=== PATIENT | female | born 2005 | race Caucasian/White ===

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

== ENCOUNTER 2024-03-20 17:12 | Emergency (ER) | payer OTHER, SELFPAY ==
[2024-03-20 17:13] VITALS: BP 150/68; PULSE 85; RESP 16; TEMP 36.4; O2SAT 100; BMI 23.8
--- NOTE | 2024-03-20 17:26 | RAD_ITS ---
INDICATION: trauma EXAMINATION/TECHNIQUE: X-RAY - XR Pelvis 1 View COMPARISON: FINDINGS: PELVIC BONES: No displaced fracture, destructive or sclerotic lesions. Note that overlapping bowel shadows may however obscure fine detail. Sacroiliac joints are unremarkable. No widening of the pubic symphysis. HIPS: The articular structures are unremarkable. No displaced fracture seen in this frontal view. SOFT TISSUES: No soft tissue swelling or gas. RAD/Pelvis 1 or 2 Views IMPRESSION: No evidence of displaced pelvic or hip fracture. Electronically Signed: Thomas Simmons DO at 18:21 EDT Reading Location ID and State: [facility] / [place] Tel [phone], Service support ,
--- NOTE | 2024-03-20 17:27 | EX.ED.GENINJ ---
HPI History of Present Illness Chief Complaint: Back Informant: patient Narrative Narrative: 18-year-old female presenting to the emergency room with acute low back pain. Patient states that she was at work today about 1 hour prior to examination when she fell going down a flight of stairs. She states she went down on her low back and when she got to the bottom landed on her tailbone. She notes pain in the low back that radiates upwards and bruising/abrasions. She notes pain in the midline buttock region. She denies any arm or leg symptoms. She denies hitting her head. [facility] Medical History MRSA (methicillin resistant Staphylococcus aureus) Home Medications ?Medication ?Instructions ?Recorded ?Last Taken ?Type dicyclomine 20 mg tablet 20 mg PO TID PRN abdominal 08/19/23 Unknown Rx cramping #10 tabs ondansetron 4 mg disintegrating 4 mg PO Q8H PRN PRN Nausea #10 tabs 08/19/23 Unknown Rx tablet Allergy/AdvReac Type Severity Reaction Status Date / Time No Known Allergies Allergy Verified 12/31/22 09:30 Family History Other Cancer Diabetes Heart disease Social History Smoking Status: Never smoker alcohol intake: never ROS ROS ED Constitutional Constitutional ED: Denies chills or weight loss Eyes Eyes: Denies change in vision or diplopia ENT ENT ED: Denies ear pain, rhinorrhea or sore throat Cardiovascular Cardiovascular: Denies chest pain, orthopnea, palpitations or racing heartbeat Respiratory/Chest Respiratory/Chest: Denies cough, dyspnea or orthopnea Gastrointestinal Gastrointestinal: Denies abdominal pain, diarrhea, nausea or vomiting Genitourinary Genitourinary ED: Denies dysuria, hematuria or urinary frequency Musculoskeletal Musculoskeletal: Reports back pain; Denies arthralgias or myalgias Integumentary Denies abscess or rash Neurologic Neurologic: Denies headache(s) or weakness Psychiatric Psychiatric: Denies anxiety, depression, suicidal ideation or suicidal thoughts Endocrine Endocrinology: Denies polydipsia, polyphagia or polyuria Allergic/Immunologic Allergic/Immunologic ED: Denies mouth swelling, tongue swelling or urticaria EXAM Physical Exam Const Vital Signs: 03/20/24 17:13 03/20/24 18:46 Temperature 97.6 F L 97.6 F L Temperature Source Temporal Pulse Rate 85 85 Respiratory Rate 16 16 Blood Pressure 150/68 H 150/68 H Blood Pressure Mean 95 95 Pulse Ox 100 100 Oxygen Delivery Method Room Air Positive well nourished and well developed General Appearance ED: well developed and NAD HEENT Reports normocephalic, head/scalp atraumatic and moist mucous membranes Eyes PERRL and EOMs intact bilaterally Neck no lymphadenopathy, supple and no JVD Resp normal respiratory effort and clear to auscultation bilaterally Cardio regular rate, regular rhythm and no murmurs GI normal to inspection, nondistended, normoactive bowel sounds and non-tender Palpation: soft Back/Spine no CVA tenderness and normal ROM Back/Spine Narrative: Patient moves reasonably well in the bed. She has abrasion and contusion noted in the midline of the lumbar spine. Mild swelling. She has mild tenderness along the sacrum and inferiorly on the lower coccyx. No buttock pain. Extremity normal to inspection General Extremety ED: Negative for edema General Extremity: Negative for edema Neuro oriented x3 and CN's II-XII intact bilaterally Pasquale Coma Scale: document GCS findings Spontaneous Obeys Commands Oriented 15 Sensorium / Orientation: alert Motor Exam: strength 5/5 throughout Psych mental status grossly normal Mood & Affect: Negative for depressed or tearful Skin no rashes or lesions noted and no wounds MDM MDM MDM Narrative Medical decision making narrative: Differential diagnosis includes continued fracture sprain strain retroperitoneal hematoma solid organ injury My independent interpretation plain films of the pelvis is no acute fracture. My independent interpretation of the plain films of the lumbar spine is no acute fracture. Patient received a dose of Motrin. We discussed follow-up. We discussed missed fractures and the need for repeat imaging if back pain is continuing. At this point patient will be treated conservatively. Follow-up at our clinic return if worsening or concerns History & Record Review Discussion w/independent historian: Patient Radiography Diagnostic Testing: Clinical Impression(s) from Imaging Studies Pelvis X-Ray 03/20/24 17:26 IMPRESSION: No evidence of displaced pelvic or hip fracture. Electronically Signed: Thomas Simmons DO at 18:21 EDT , Lumbar Spine X-Ray 03/20/24 17:40 IMPRESSION: Normal x-ray examination of the lumbar spine. Electronically Signed: Thomas Simmons DO at 18:19 EDT , Discharge Plan Triage Chief Complaint: Back ED Provider: James Vo Dx/Rx/DC Orders Clinical Impression: Fall, Acute lumbar myofascial strain, Abrasion of back, Contusion of sacrococcygeal region Instructions: ED Abrasion, ED Back Sprain/Strain, ED Coccyx or Sacrum Contusion Prescriptions: No Action ondansetron [ondansetron] 4 mg tablet,disintegrating 4 mg PO Q8H PRN PRN (Reason: Nausea) Qty: 10 0RF dicyclomine 20 mg tablet 20 mg PO TID PRN (Reason: abdominal cramping) Qty: 10 0RF Primary Care Provider: Chelo Griffin Referrals: Chelo Griffin MD [Primary Care Provider] - [facility] [Non-Staff] - As soon as possible Print Language: Greek Disposition Disposition: Home, Self Care Discharge Date/Time: 03/20/24 18:53
[2024-03-20] MEDS: Ibuprofen 600 MG Tablet PO (17:32)
--- NOTE | 2024-03-20 17:40 | RAD_ITS ---
STUDY: X-RAY - LUMBAR SPINE REASON FOR EXAM: Female, 18 years old. Trauma TECHNIQUE: 3 view(s) of the lumbar spine were obtained. COMPARISON: None FINDINGS: Normal lumbar lordosis. There is no substantial scoliosis. There is a normal alignment of the vertebrae. Normal vertebral bodies and endplates. Normal disc space heights. The soft tissue structures are unremarkable. RAD/Lumbar Spine 2 or 3 Views IMPRESSION: Normal x-ray examination of the lumbar spine. Electronically Signed: Thomas Simmons DO at 18:19 EDT ,
[2024-03-20 18:46] VITALS: BP 150/68; PULSE 85; RESP 16; TEMP 36.4; O2SAT 100
== END 2024-03-20 18:53 | disposition home or self-care (01) ==
PROVIDERS: Emergency Provider Emergency Medicine; PCP Pediatrics; Visit Provider Emergency Medicine
DX: S39.012A Strain of muscle, fascia and tendon of lower back, initial encounter (principal); S20.229A Contusion of unspecified back wall of thorax, initial encounter; S30.810A Abrasion of lower back and pelvis, initial encounter; Z86.14 Personal history of Methicillin resistant Staphylococcus aureus infection; W10.9XXA Fall (on) (from) unspecified stairs and steps, initial encounter; Y99.0 Civilian activity done for income or pay; Y92.89 Other specified places as the place of occurrence of the external cause
CPT/HCPCS: 72100; 72170; 99282

== ENCOUNTER 2025-01-21 09:17 | Emergency (ER) | payer SELFPAY ==
[2025-01-21 09:18] VITALS: BP 127/75; PULSE 117; PULSE 119; RESP 18; TEMP 36.1; O2SAT 100; BMI 27.0
--- NOTE | 2025-01-21 09:36 | EX.ED.DYSGE1 ---
HPI History of Present Illness Chief Complaint: Rash Narrative Narrative: 19-year-old female past medical history of seasonal allergies presents with red, erythematous rash that developed yesterday. She noticed an area on her left thigh, that she thought was mild irritation. She took her Zyrtec which she usually takes daily. When she came home from work, she noticed that she had itchiness of her palms and hands, as well as red rash underneath her breasts bilaterally. She denies any fevers or chills, no nausea or vomiting, no shortness of breath or difficulty swallowing. She states that her throat may have felt scratchy, but she usually takes her antihistamine which helps with that. She states that the rash was on her torso as well, but seems to have improved, but remains on her thigh and underneath her breasts bilaterally. She denies any new recent soaps or lotions, no food allergies, no new laundry detergents. [facility] Medical History MRSA (methicillin resistant Staphylococcus aureus) Home Medications ?Medication ?Instructions ?Recorded ?Last Taken ?Type dicyclomine 20 mg tablet 20 mg PO TID PRN abdominal 08/19/23 Unknown Rx cramping #10 tabs ondansetron 4 mg disintegrating 4 mg PO Q8H PRN PRN Nausea #10 tabs 08/19/23 Unknown Rx tablet prednisone 20 mg tablet 40 mg (2 x 20 mg) PO DAILY 7 days 01/21/25 Unknown Rx #14 tabs Allergy/AdvReac Type Severity Reaction Status Date / Time No Known Allergies Allergy Verified 01/21/25 09:18 Family History Other Cancer Diabetes Heart disease Social History household members: family housing: house Smoking Status: Current some day smoker tobacco type: e-cigarettes alcohol intake: never ROS ROS ED ROS Narrative Review of systems positive for erythematous, pruritic rash concentrated on her thighs/groin, underneath her breasts, and was on her torso but improved. No shortness of breath, no fevers or chills, no cough, no nausea or vomiting, no difficulty swallowing, no difficulty breathing. Positive scratchy throat. EXAM Physical Exam Narrative Exam Narrative: Afebrile. Vital signs noted. Nontoxic-appearing. Cardiovascular examination reveals mild tachycardia. Lungs are clear to auscultation bilaterally without wheezing, no stridor. Speaking in full sentences. HEENT examination reveals airway to be patent, no drooling or trismus. No noted swelling of tongue. Abdomen soft and nontender with positive bowel sounds. Neurological examination nonfocal, nonlateralizing. Skin examination does reveal mild erythema of the palms of her hands, and on visual inspection additionally underneath her breasts. She had only lifted up her gown to reveal mainly her torso and underneath her breasts, while remaining covered. Const Vital Signs: 01/21/25 09:18 01/21/25 09:18 Temperature 97 F L Temperature Source Temporal Pulse Rate 117 H 119 H Respiratory Rate 18 Blood Pressure 127/75 H Blood Pressure Mean 92 Pulse Ox 100 Oxygen Delivery Method Room Air MDM MDM MDM Narrative Medical decision making narrative: Differential diagnosis includes but not limited to hives versus Adrienne versus allergic reaction versus nonspecific rash/dermatitis. Patient drove herself here so I am hesitant to give her an antihistamine that will make her sleepy. She prefers Zyrtec. I do not feel she has an anaphylactic reaction which would require epinephrine. She was given a loading dose of prednisone 60 mg orally here in the emergency department, as well as 40 mg of Pepcid as an additional histamine nahtan. She was observed here in the emergency department. Upon repeat examination at approximately 11:10 AM, there has been no significant change. However, she feels well enough to be discharged. She will continue her antihistamine and her prednisone burst. She was told to follow-up with her primary care provider as she may need referral to an dietetic intern. Return instructions to the emergency department were reviewed. Disposition is discharged home in stable condition. History & Record Review Discussion w/independent historian: Patient Additional record(s) reviewed:: Prior ED visit (Noncontributory to current chief complaint.) Discharge Plan Triage Chief Complaint: Rash ED Provider: Phani Tabares Dx/Rx/DC Orders Clinical Impression: Hives, Pruritic erythematous rash Instructions: Nonspecific Skin Rash, ED Hives (Adult) Prescriptions: New prednisone 20 mg tablet 40 mg PO DAILY 7 Days Qty: 14 0RF No Action ondansetron [ondansetron] 4 mg tablet,disintegrating 4 mg PO Q8H PRN PRN (Reason: Nausea) Qty: 10 0RF dicyclomine 20 mg tablet 20 mg PO TID PRN (Reason: abdominal cramping) Qty: 10 0RF Primary Care Provider: Chelo Griffin Referrals: Chelo Griffin MD [Primary Care Provider] - 3-5 Days if not improving Activity Restrictions/Additional Instructions: Continue your Zyrtec as previously directed. If you do not want to take that and prefer Benadryl as an antihistamine, you can take 25 mg orally. That every 4-6 hours but beware of drowsiness. After steroid burst for the next week. Follow-up with your primary care provider. You may need referral to an dietetic intern. Return to the emergency department with difficulty breathing or swallowing, new or worsening symptoms. Print Language: Divehi Disposition Disposition: Home, Self Care
[2025-01-21] MEDS: Famotidine 20 MG Tablet 40 MG PO (09:40)
[2025-01-21] MEDS: predniSONE 20 MG Tablet 60 MG PO (09:40)
[2025-01-21 11:42] VITALS: BP 115/65; PULSE 85; RESP 18; TEMP 36.8; O2SAT 100
== END 2025-01-21 11:44 | disposition home or self-care (01) ==
PROVIDERS: Emergency Provider Emergency Medicine; PCP Pediatrics; Visit Provider Emergency Medicine
DX: L50.9 Urticaria, unspecified (principal); F17.290 Nicotine dependence, other tobacco product, uncomplicated; Z86.14 Personal history of Methicillin resistant Staphylococcus aureus infection
CPT/HCPCS: 99283